=== PATIENT | female | born 1995 | race Caucasian/White ===

== ENCOUNTER 2018-02-18 20:30 | Emergency (ER) | payer BC ==
[~2018-02-18] VITALS: Ht 162.6 cm; Wt 69.8 kg
[2018-02-18 20:39] VITALS: TEMP 36.5; Ht 162.6 cm; Wt 69.8 kg
[2018-02-18] MEDS ORDERED: PROPARACAINE HCL 0.5% OP SOLN 15 ML BTL OP STA (21:21)
[2018-02-18] MEDS ORDERED: CIPROFLOXACIN HCL 0.3% OP SOLN 2.5 ML BTL OP STA (22:18)
[2018-02-18] MEDS ORDERED: PERCOCET HOME PACK PO STA (22:27)
--- NOTE | 2018-02-18 22:29 | EMERGENCY ROOM VISIT NOTE ---
ED Visit Note First contact with patient: 20:45 CHIEF COMPLAINT: Foreign body of the left eye HISTORY OF PRESENT ILLNESS: This 22-year-old female patient presents to the emergency department, ambulatory, complaining of pain and foreign body sensation in the left eye. The patient states she noticed the symptoms began last evening while removing her makeup with a wipe. She flushed the eye with water and contact solution, and went to bed. There has been a constant moderate pain and irritation, redness and tearing in the eye. The vision has not been decreased over all. The patient does occasionally wear contacts. The patient rates the pain as 6/10. The patient has not had previous injuries to this eye. Tetanus shot is up to date. The patient was seen at [facility] prior to arrival here in the emergency department. She states attempts were made to remove the foreign body without success. She was encouraged to come to the emergency department for further evaluation and management. REVIEW OF SYSTEMS: A 6 system review of systems was completed with positives and pertinent negatives listed in the HPI. ALLERGIES: None MEDICATIONS: OCPs PMH: Allergic rhinitis SOCIAL HISTORY: The patient is a [employer] student. She lives locally with her roommate. She denies drug, alcohol, tobacco use. PHYSICAL EXAM: Vital Signs: Reviewed Nurse's notes, vital signs stable. Visual acuity 20/20 left, 20/15 right, with correction. GENERAL: This is a 22-year- old white female, in no acute distress, but who is uncomfortable from the eye problem. Well-developed well-nourished. The patient is anxious and intermittently crying throughout examination. EYES: The pupils are equal round and reactive to light and accommodation. EOMs are full and without tenderness. There is watery discharge from the right eye which is injected. There is an obvious foreign body visible on the cornea at approximately 12:00 over the iris. There is no foreign body visible under the eyelid after lid eversion. A small foreign body was seen embedded in the cornea under slit lamp exam. The cornea was clear and no hyphema was seen. Fluorescein uptake was observed with ultraviolet light significant for a corneal abrasion only around the foreign body. EMERGENCY DEPARTMENT COURSE: I examined the patient. Alcaine 2 drops were placed in the patient's right eye. A slit lamp exam was performed as above. Verbal consent was obtained to perform the procedure. Attempts were made to remove the foreign body with a moistened cotton swab. These were unsuccessful. Attempts were then made to remove the foreign body with an insulin needle. The patient did not tolerate this very well, she was extremely anxious throughout the procedure. I discussed with the patient that I recommend contacting ophthalmology with follow-up tomorrow by the specialist. The patient was agreeable. I did consult with Dr. Gregory, who advised antibiotic drops and have the patient contact the office tomorrow morning. Ciloxan two drops was placed in the patient's left eye. The patient was given a home pack of Percocet for pain. The patient was discharged home in good condition. I attest that I have personally reviewed the patient's current medication list. Patient was found to have normal blood pressure on screening and does not require follow-up. Etiologies such as conjunctivitis, corneal abrasion, uveitis, glaucoma, periorbital cellulitis, orbital cellulitis, abscess, trauma, as well as others were entertained. DIAGNOSIS: Foreign body with subsequent corneal abrasion of the left eye The chart was completed utilizing [employer] Speech voice recognition software. Grammatical errors, random word insertions, pronoun errors, and incomplete sentences are an occasional consequence of this system due to software limitations, ambient noise, and hardware issues. Any formal questions or concerns about the content, text, or information contained within the body of this dictation should be directly addressed to the provider for clarification. Vital Signs Date Time Temp Pulse Resp B/P (MAP) Pulse Ox O2 Delivery O2 Flow Rate FiO2 02/18/18 22:42 71 18 127/75 97 Room Air 02/18/18 20:39 36.5 88 20 157/88 96 Room Air Medications Administered Medications (Trade) Dose Ordered Sig/Saeed Route Start Time Stop Time Status Last Admin Dose Admin Proparacaine HCl (Alcaine 0.5% Oph Soln) 2 drops NOW STAT OP 02/18/18 21:21 02/18/18 21:22 DC 02/18/18 21:29 2 DROPS Ciprofloxacin HCl (Ciprofloxacin 0.3% Op Soln) 2 drops NOW STAT OP 02/18/18 22:18 02/18/18 22:20 DC 02/18/18 22:41 2 DROPS Oxycodone/ Acetaminophen (Percocet 5/ 325MG Home Pack) 1 homepack UD STAT PO 02/18/18 22:27 02/18/18 22:29 MO 02/18/18 22:42 1 HOMEPACK Departure Information Impression Primary Impression: Foreign body in cornea, left eye, initial encounter Additional Impression: Corneal abrasion, left Dispostion Home / Self-Care Condition GOOD Referrals No Doctor, Assigned (PCP) Kareem Gregory D.O. Patient Instructions ED Foreign Body Cornea, [facility] Additional Instructions You have been treated in the Emergency Department today for your Corneal Abrasion. You have been prescribed Percocet to be used for pain control. This is a narcotic medication. You cannot drive or consume alcohol while on this medicine. This medicine should only be used for pain that cannot be controlled with [id number] pain medicines. You have been prescribed Ciloxan eye drops. This is an antibiotic which will help to prevent an infection from developing in your affected eye. You should use 2 drops in the affected eye every 2 hours while awake for the first 2 days, then every 4 hours for the remaining 5 days. This is a total of a 7-day course for these antibiotic eye drops. For pain control, you can use the following jaap-tfu-[id number] medicines (if >12 yo): Ibuprofen(Motrin, Advil) may be used for fever or pain. Use 600mg every six hours as needed. Take with food. Avoid using more than 2400mg in a 24 hour period. Do not use 2400mg per day for more than three consecutive days without physician direction. Prolonged inappropriate use can lead to stomach upset or ulcers. (AND/OR) Acetaminophen(Tylenol) may be used for fever or pain. Use 1000mg every six to eight hours as needed. Avoid using more than 3000mg in a 24 hour period. You should relax in a quiet, dark place for the rest of the day. You should wear sunglasses while outside for the next few days until your eyes are not as sensitive to the light. You should schedule a follow-up appointment tomorrow with the rn wellness. You were provided with contact information. Return to the Emergency Department if your current symptoms worsen despite treatment course outlined above, or if you develop any of the following symptoms : intractable pain, visual disturbances, loss of vision, increased redness, swelling, drainage, or if you develop a fever. Problem Qualifiers Additional Impression: Corneal abrasion, left Encounter type: initial encounter Qualified Codes: S05.02XA - Injury of conjunctiva and corneal abrasion without foreign body, left eye, initial encounter
[2018-02-18 22:42] VITALS: BP 127/75; PULSE 71; O2SAT 97
== END 2018-02-18 22:45 | disposition home or self-care (01) ==
LOC: C.EDB 20:32 → C.EDD 22:45
DX: T15.02XA Foreign body in cornea, left eye, initial encounter (principal); S05.02XA Injury of conjunctiva and corneal abrasion without foreign body, left eye, initial encounter; X58.XXXA Exposure to other specified factors, initial encounter